=== PATIENT | male | born 1965 | race Hispanic/Latino ===

== ENCOUNTER 2023-04-19 06:00 | Day surgery (SDC) | payer OTHER ==
[2023-04-13 10:44] LABS: BASOPHILS # (AUTO) 0.11 K/uL (0.00-0.20); BASOPHILS % (AUTO) 2.1 % (0.0-5.0); EOSINOPHILS # (AUTO) 0.13 K/uL (0.00-0.70); EOSINOPHILS % (AUTO) 2.5 % (0.0-8.0); IMMATURE GRANULOCYTE ABSOLUTE 0.02 K/uL (0-1); LYMPHOCYTES # (AUTO) 1.8 K/uL (1.0-4.8); MEAN CORPUSCULAR HEMOGLOBIN 28.7 pg (27.0-33.0); MEAN CORPUSCULAR HGB CONC 32.8 g/dL (32.0-36.0); MEAN CORPUSCULAR VOLUME 87.4 fL (79-99); MONOCYTES # (AUTO) 0.4 K/uL (0.1-1.0); MONOCYTES % (AUTO) 7.5 % (3.0-13.0); NEUTROPHILS # (AUTO) 2.9 K/uL (1.8-7.7); NEUTROPHILS % (AUTO) 54.5 % (40.0-77.0); PLATELET COUNT (AUTO) 270 K/uL (130-400); RED BLOOD CELL COUNT(AUTO) 5.72 MIL/uL (4.50-6.20); RED CELL DISTRIBUTION WIDTH 13.2 % (11.0-15.5); WHITE BLOOD COUNT (AUTO) 5.3 K/uL (4.8-10.8)
[2023-04-13 10:45] VITALS: BP 141/81; PULSE 83; RESP 18
[2023-04-13 10:58] LABS: INR < 0.93 (0.85-1.15); PROTHROMBIN TIME 10.3 SEC (9.6-11.6)
[2023-04-13 10:59] LABS: ALBUMIN 4.3 g/dL (3.5-5.0); CARBON DIOXIDE 31 mmol/L (21-32); CHLORIDE 99 mmol/L (101-111); CREATININE 0.8 mg/dL (0.5-1.5); GLOMERULAR FILTR. RATE CALC 103 mL/min (>90); GLUCOSE,RANDOM 121 mg/dL (70-105); PARTIAL THROMBOPLASTIN TIME 27.7 SEC (26.3-35.5); POTASSIUM 4.1 mmol/L (3.5-5.1); SODIUM SERUM 136 mmol/L (136-145); UREA NITROGEN, BLOOD 11 mg/dL (7-18)
[~2023-04-19] VITALS: Ht 170.2 cm; Wt 94.3 kg
[2023-04-19] VITALS (18 sets, daily range): BP systolic 100–142; BP diastolic 52–83; PULSE 61–99; RESP 15–19
[~2023-04-19 06:00] MED LIST: AEC81 PO; ATOR40TA71 PO; EMPA25TA PO; GLIP10TA9 PO; LISI20TA24 PO; METF-446 PO
[2023-04-19] MEDS ORDERED: 0.9%NACL 1000ML 1,000 ML IV ONE (06:23)
[2023-04-19] MEDS ORDERED: ROPIVACAINE 0.5% 5MG/ML 30ML ONE (06:46)
[2023-04-19] MEDS ORDERED: LIDOCAINE PF 100MG/5ML (2%) SYRINGE 5ML ONE (06:54)
[2023-04-19] MEDS ORDERED: GLYCOPYRROLATE 1 MG/5 ML SYRINGE ONE (06:55)
[2023-04-19] MEDS ORDERED: SUCCINYLCHOLINE CHLORIDE 20 MG/ML 10 ML VIAL ONE (06:55)
[2023-04-19] MEDS ORDERED: PROPOFOL 10 MG/ML 20ML VIAL IV ONE (06:55)
[2023-04-19] MEDS ORDERED: FENTANYL CITRATE PF 50 MCG/1 ML 2ML VIAL ONE (06:55)
[2023-04-19] MEDS ORDERED: ROCURONIUM 10MG/1ML SYR 10 MG/ML ML ONE ×2 (06:55→11:02)
[2023-04-19] MEDS ORDERED: MIDAZOLAM HCL 1 MG/ML 2ML VIAL ONE (06:57)
[2023-04-19] MEDS ORDERED: EPINEPHRINE PF 1MG (1:1,000) 1 MG/ML AMP ONE (07:06)
[2023-04-19] MEDS: CEFAZOLIN SODIUM 2 GM VIAL ONE ×2 (07:35→07:58)
[2023-04-19] MEDS ORDERED: EPHEDRINE SULFATE 50 MG/ML AMPULE ONE (08:29)
[2023-04-19] MEDS ORDERED: MEPERIDINE-PF 25 MG/ML SYG ONE (11:56)
[2023-04-19] MEDS ORDERED: NEOSTIGMINE 5MG/5ML SYR IV ONE (12:00)
[2023-04-19] MEDS ORDERED: CYCL5TAB PO (12:09)
[2023-04-19] MEDS ORDERED: HYDR-4060 PO (12:09)
== END 2023-04-19 14:10 | disposition home or self-care (01) ==
LOC: DAH 06:00
PROVIDERS: ATTEND Student in an Organized Health Care Education/Training Program
DX: M75.121 Complete rotator cuff tear or rupture of right shoulder, not specified as traumatic (principal); M75.21 Bicipital tendinitis, right shoulder; I10 Essential (primary) hypertension; E78.5 Hyperlipidemia, unspecified; E11.9 Type 2 diabetes mellitus without complications; Z79.01 Long term (current) use of anticoagulants; Z79.899 Other long term (current) drug therapy; Z98.890 Other specified postprocedural states; Z90.49 Acquired absence of other specified parts of digestive tract; Z87.891 Personal history of nicotine dependence; Z79.84 Long term (current) use of oral hypoglycemic drugs; Z79.82 Long term (current) use of aspirin
CPT/HCPCS: 82040; 80048; 85025; 85610; 85730; 86140; 36415; 29827; 82948 ×3; 64415; 29820; A4663; J7030 ×3; A4452; J3010; J3490 ×2; J2710; J0330; J2001; J0171; J2250; J2704; J2175; J2795; J0690; A6223; A4649; A4930; C1713 ×2; A5120; A4215; A4223; A4222; A4221

== ENCOUNTER 2024-06-30 06:15 | Day surgery (SDC) | payer OTHER ==
[2024-06-27 11:06] VITALS: BP 140/75; PULSE 108; RESP 18; TEMP 98.1
[2024-06-27 11:12] LABS: BASOPHILS # (AUTO) 0.12 K/uL (0.00-0.20); BASOPHILS % (AUTO) 2.2 % (0.0-5.0); EOSINOPHILS # (AUTO) 0.29 K/uL (0.00-0.70); EOSINOPHILS % (AUTO) 5.2 % (0.0-8.0); HEMATOCRIT 47.2 % (42-54); IMMATURE GRANULOCYTE ABSOLUTE 0.03 K/uL (0-1); LYMPHOCYTES # (AUTO) 1.6 K/uL (1.0-4.8); MEAN CORPUSCULAR HEMOGLOBIN 28.8 pg (27.0-33.0); MEAN CORPUSCULAR HGB CONC 32.8 g/dL (32.0-36.0); MEAN CORPUSCULAR VOLUME 87.7 fL (79-99); MONOCYTES # (AUTO) 0.5 K/uL (0.1-1.0); MONOCYTES % (AUTO) 9.3 % (3.0-13.0); NEUTROPHILS # (AUTO) 3.1 K/uL (1.8-7.7); NEUTROPHILS % (AUTO) 54.8 % (40.0-77.0); PLATELET COUNT (AUTO) 270 K/uL (130-400); RED BLOOD CELL COUNT(AUTO) 5.38 MIL/uL (4.50-6.20); RED CELL DISTRIBUTION WIDTH 12.9 % (11.0-15.5); WHITE BLOOD COUNT (AUTO) 5.6 K/uL (4.8-10.8)
[2024-06-27 11:19] LABS: CREATININE 0.9 mg/dL (0.5-1.3); POTASSIUM 4.1 mmol/L (3.5-5.1)
[2024-06-27 11:27] LABS: INR <= 0.93 (0.85-1.15); PROTHROMBIN TIME 10.2 SEC (9.6-11.6)
[2024-06-27 11:28] LABS: PARTIAL THROMBOPLASTIN TIME 26.2 SEC (26.3-35.5)
[~2024-06-30] VITALS: Ht 170.2 cm; Wt 92.4 kg
[2024-06-30] VITALS (13 sets, daily range): BP systolic 96–138; BP diastolic 50–81; PULSE 93–120; RESP 15–20; TEMP 97.2–98.1
[~2024-06-30 06:15] MED LIST changes: -AEC81 PO; +ASPI-1443 PO; +ATOR-2 PO; -ATOR40TA71 PO; +GLIP10TA16 PO; -GLIP10TA9 PO; +SEMA0.258 SQ
[2024-06-30] MEDS: 0.9%NACL 1000ML 1,000 ML IV ONE (06:26)
[2024-06-30] MEDS: ceFAZolin SODIUM 2 GM VIAL ONE (06:26)
[2024-06-30] MEDS ORDERED: 0.9%NACL 1000ML 1,000 ML IV SCH (06:30)
[2024-06-30] MEDS ORDERED: CYCL-309 PO (07:12)
[2024-06-30] MEDS ORDERED: HYDR-4060 PO (07:12)
[2024-06-30] MEDS ORDERED: LIDOCAINE PF 100MG/5ML (2%) SYRINGE 5ML ONE (07:15)
[2024-06-30] MEDS ORDERED: FENTanyl CITRate PF 50 MCG/1 ML 2ML VIAL ONE ×2 (07:16→09:03)
[2024-06-30] MEDS ORDERED: MIDAZOLAM HCL 1 MG/ML 2ML VIAL ONE (07:16)
[2024-06-30] MEDS ORDERED: rocuRONium bROMide 10MG/1ML 5ML VL ONE ×2 (07:16→09:04)
[2024-06-30] MEDS ORDERED: proPOFol 10 MG/ML 20ML VIAL IV ONE ×2 (07:16→11:49)
[2024-06-30] MEDS ORDERED: phenylEPHRINE HCL 10 MG/ML 1ML VIAL IV ONE ×3 (07:18→11:30)
[2024-06-30] MEDS ORDERED: ROPivacaine 0.5% 5MG/ML 30ML ONE (07:52)
[2024-06-30] MEDS ORDERED: dexaMETHasone SOD PHOSPHATE 4 MG/ML 1ML VIAL ONE (09:01)
[2024-06-30] MEDS ORDERED: ketOROlac 30MG VIAL (30MG/ML) ONE (09:01)
[2024-06-30] MEDS ORDERED: ondanSETRON 4MG INJ ONE (09:01)
[2024-06-30] MEDS ORDERED: NEOSTIGMINE METHYLSULFATE 1MG/ML IV ONE (09:01)
[2024-06-30] MEDS ORDERED: GLYCOPYRROLATE 0.2 MG/ML 5 ML VIAL ONE (09:01)
[2024-06-30] MEDS: EPINEPHrine 1 MG/ML 30ML VIAL IJ ONE (09:19)
[2024-06-30] MEDS: ALBUMIN (HUMAN) 5% 500 ML IV ONE (12:37)
--- NOTE | 2024-06-30 13:40 | NUR ---
Full and complete discharge instructions given to Patient and Family both verbally and in writing. All questions answered. Tolerating PO fluids well. Voiced understanding to SURGICAL procedure and follow up. Neurovascularly intact. Sling intact.. Dressing clean and dry. PIV removed with catheter tip intact. W\C to POV with Family to home.
--- NOTE | 2024-06-30 15:31 | OP ---
Operative Note: DATE OF PROCEDURE: 06/30/24 SURGEON: YAMILA GREEN MD CARE TAKER: Harper Gamboa ANESTHESIA: General and interscalene block ANESTHESIOLOGIST/LEVER TENDER: Alton Francis CRNA PREOPERATIVE DIAGNOSIS: Left shoulder rotator cuff tear, subacromial impingement, AC joint osteoarthritis, biceps tendinitis POSTOPERATIVE DIAGNOSIS: Left shoulder rotator cuff tear, subacromial impingement, AC joint osteoarthritis, biceps tendinitis PROCEDURE: Left shoulder arthroscopic rotator cuff repair, subacromial decompression, distal clavicle excision, biceps tenodesis ESTIMATED BLOOD LOSS: 10 cc FINDINGS: On inserting the arthroscope into the joint we noted there to be significant degenerative fraying of the labrum with tattered appearance of long head of the biceps. Sizable supraspinatus full-thickness tear was noted anteriorly. This extended back into the anterior fibers of the infraspinatus. After we took down the long head of the biceps and performed a tenodesis in the bicipital groove, we debrided some of the labral tissue. We then repositioned the arthroscope and working portal into the subacromial space where we performed a double row rotator cuff repair using the Arthrex SpeedBridge. We also performed a distal clavicle excision excising about 8 mm from the distal clavicle as well as the inferiorly projecting bone spurs at these levels. We also performed subacromial decompression excising not only the bursal tissue but using the bur to remove the bottom 2-3 mm of bone from the acromial region ensuring no bony spurs remained. IMPLANTS: Arthrex SpeedBridge and Arthrex loop N Tack INDICATIONS: 58-year-old male with a history of left shoulder pain. They were failing conservative management and found on MRI to have full-thickness rotator cuff tear and biceps tendinitis. Clinically exam was consistent this is in addition to subacromial impingement and acromioclavicular joint osteoarthritis. After discussion of the risk, benefits, and alternatives, the patient voluntarily agreed to undergo the aforementioned procedure. DESCRIPTION OF PROCEDURE: Patient was properly identified in the preoperative holding area. Surgical site marking was verified and surgery consent reviewed. The patient was then taken to the operating room and placed in supine position on the OR table. After induction of general anesthesia, preoperative antibiotics were given, all bony prominences were well-padded as the patient was transitioned into beachchair position. The left upper extremity was then prep ped and draped in usual sterile fashion. Surgical timeout was done verifying correct surgery, side, site, and location to be performed. We then began the procedure by using an 18-gauge spinal needle to inject the shoulder joint with normal saline to distend the joint capsule. A posterior lateral portal was established using 11 blade and we inserted our arthroscope through this portal. We established an anterior portal using needle localization under direct visualization and placed a working cannula through this portal. We then performed a diagnostic arthroscopy with the aforementioned findings. We then evaluated the digit and remove tearing of the labrum and debrided this back to a stable leading edge. We visualized the degenerative findings involvin g the long head of the biceps. Elected to perform a bicipital tenodesis in the bicipital groove using the Arthrex loop N Tack device just as the biceps exited the joint. This was done in standard fashion. We then repositioned the arthroscope into the subacromial space. We were able to visualize the tear of the supraspinatus after removing the subacromial bursal tissue. We debrided the footprint of the insertion site back to healthy bleeding bone. We then performed a rotator cuff repair of the supraspinatus tear using a the Arthrex SpeedBridge in standard fashion. Once we were happy with the rotator cuff repair we then inserted the bur and further resected the undersurface of the acromion for about 2-3 mm in addition to the bone spurs at the acromioclavicular joint. We also resected the lateral 8 mm of the distal clavicle. We then removed as much of the arthroscopic fluid as possible and removed the arthroscopic instruments and camera. We expressed some the remaining fluid from the surrounding soft tissues. 3-0 nylon was then used to close the skin portals. Sterile soft dressing was applied. Patient was then placed into a shoulder immobilizer, awakened from anesthesia, and taken the recovery room in stable condition. YAMILA GREEN MD Jun 30, 2024 15:31
== END 2024-06-30 13:40 | disposition home or self-care (01) ==
LOC: DAH 06:15
PROVIDERS: ATTEND Student in an Organized Health Care Education/Training Program
DX: M75.122 Complete rotator cuff tear or rupture of left shoulder, not specified as traumatic (principal); M75.22 Bicipital tendinitis, left shoulder; M19.012 Primary osteoarthritis, left shoulder; M75.42 Impingement syndrome of left shoulder; I10 Essential (primary) hypertension; E78.5 Hyperlipidemia, unspecified; E11.9 Type 2 diabetes mellitus without complications; Z79.01 Long term (current) use of anticoagulants; Z79.84 Long term (current) use of oral hypoglycemic drugs; Z79.82 Long term (current) use of aspirin; Z79.899 Other long term (current) drug therapy
CPT/HCPCS: 82040; 80048; 85025; 85610; 85730; 84134; 86140; 36415; 29827; 64415; 29828; 29824; 29826; 82948 ×2; J1100; J1885; A4663; J7030 ×2; A4565; P9045; J3010 ×2; J0171; J3490 ×3; J2003; J2250; J2704 ×2; J2405; J2710; J2795; J2371 ×3; J0690; A6223; A4930; C1713 ×2; A5120; A4215; A4222; A4221; A4216; A4450; A4223 ×2